=== PATIENT | female | born 1990 ===

== ENCOUNTER 2017-12-30 16:53 | Emergency (ER) | payer OTHER ==
[2017-12-30 17:09] VITALS: O2SAT 100
--- NOTE | 2017-12-30 19:37 | ED PDOC ---
HPI: Female Pain Time Seen by Provider: 12/30/17 18:34 Chief Complaint (Nursing): Female Genitourinary Chief Complaint (Provider): Vaginal bleeding History Per: Patient History/Exam Limitations: no limitations Onset/Duration Of Symptoms: Days (x5) Current Symptoms Are (Timing): Still Present Associated Symptoms: Nausea (mild), Urinary Symptoms (vaginal bleeding ). denies: Vomiting Additional Complaint(s): Nati Young is a 27 year old female, with no significant past medical history, who presents to the emergency department complaining of vaginal bleeding onset for the last x5 days. Patient states it is more like spotting but it slightly increased today which prompted visit. She is A1 and x5 weeks . She has an appointment for her care in x2 weeks and has started on vitamins. She reports a mild nausea with but no vomiting, clots, or pain. No further medical complaints. PMD: Dr. Jasmine : 2 Miscarriage: 1 Past Medical History Reviewed: Historical Data, Nursing Documentation, Vital Signs Vital Signs: Last Vital Signs Temp 98.3 F 12/30/17 17:06 Pulse 90 12/30/17 17:06 Resp 16 12/30/17 17:06 BP 114/67 12/30/17 17:06 Pulse Ox 100 12/30/17 17:06 - Medical History PMH: No Chronic Diseases - Surgical History Surgical History: No Surg Hx - Family History Family History: States: No Known Family Hx - Social History Current smoker - smoking cessation education provided: No Alcohol: None Drugs: Denies - Home Medications Home Medications: Ambulatory Orders Medication Instructions Recorded Multivit/Folic Acid/I 1 tab PO DAILY #30 tab 11/10/16 [ Plus] Nitrofurantoin Macrocrystals 1 cap PO BID #14 cap 12/30/17 [Macrobid] - Allergies Allergies/Adverse Reactions: Allergies Allergy/AdvReac Type Severity Reaction Status Date / Time No Known Allergies Allergy Verified 12/30/17 17:06 Review of Systems ROS Statement: Except As Marked, All Systems Reviewed And Found Negative Genitourinary Female: Positive for: Vaginal Bleeding (spotting. No clots). Negative for: Pelvic Pain Physical Exam - Reviewed Nursing Documentation Reviewed: Yes Vital Signs Reviewed: Yes - Physical Exam Appears: Positive for: Non-toxic, No Acute Distress Head Exam: Positive for: ATRAUMATIC, NORMOCEPHALIC Skin: Positive for: Normal Color, Warm, Dry Eye Exam: Positive for: Normal appearance Neck: Positive for: Painless ROM Gastrointestinal/Abdominal: Positive for: Normal Exam, Soft. Negative for: Tenderness, Mass, Guarding, Rebound Extremity: Positive for: Normal ROM. Negative for: Deformity, Swelling Neurologic/Psych: Positive for: Alert, Oriented - Laboratory Results Result Diagrams: 12/30/17 21:02 - ECG O2 Sat by Pulse Oximetry: 100 (RA) Pulse Ox Interpretation: Normal Medical Decision Making Medical Decision Making: Initial Impression: vaginal bleeding in early . Differential diagnosis includes but not limited to ectopic , threatened miscarriage, complete miscarriage, and UTI Initial Plan: --Type and screen --Beta-HCG,Quantitative --Urine --Urine dipstick --CBC w/ differential --PTT --PT --Reevaluation Labs demonstrate betahcg [id number] Type Rh- Ua c/w UTI EXAM: US , Transvaginal CLINICAL HISTORY: 27 years old, female; Signs and symptoms; Lmp or gestational age (in weeks): ; Antepartum complications; Other: Spotting; ; Additional info: Vag bleed preg R/O ectopic TECHNIQUE: Real-time transvaginal obstetrical ultrasound of the maternal pelvis and a first trimester with image documentation. Transvaginal imaging was used for better evaluation of the fetus and adnexa. COMPARISON: No relevant prior studies available. FINDINGS: Gestation: There is an anechoic structure in the endometrial cavity measuring 1.0 x 0.7 x 1.1 cm probably an early gestational sac. No yolk sac or pole is identified. Placenta/amniotic fluid: Cannot be adequately evaluated due to the early gestational age. Uterus/cervix: Unremarkable measuring 6.6 x 3.5 x 4.7 cm. No myometrial mass. The cervix is closed measuring 3.3 cm. Ovaries: The right ovary measures 4.5 x 2.1 x 3.8 cm and the left ovary measures 2.3 x 2.1 x 2.3 cm. There is a corpus luteal cyst in the right ovary measuring 2.3 x 2.2 x 2.5 cm. No mass. Free fluid: No free fluid. IMPRESSION: Possible early gestational sac. No pole and yolk sac. Ectopic is not completely excluded. Recommend follow up serial beta hCG levels and ultrasound as clinically warranted. Thank you for allowing us to participate in the care of your patient. Dictated and Authenticated by: Concepcion Bradley MD 12/30/2017 11:54 PM Eastern Time ([place] & [place]) KRISHNA ROMEO station mechanic helper. Pt to return to ER in 48 hours for repeat beta. Pain and bleeding precautions. KRISHNA pt and findings and plan of care translated with video felt hanger [place] Nuri H [id number] Rhogam and macrobid in ER. Scribe Attestation: Documented by Toño Cerda, acting as a scribe for Ludy Gunter MD Provider Scribe Attestation: All medical record entries made by the Scribe were at my direction and personally dictated by me. I have reviewed the chart and agree that the record accurately reflects my personal performance of the history, physical exam, medical decision making, and the department course for this patient. I have also personally directed, reviewed, and agree with the discharge instructions and disposition. Disposition - Clinical Impression Clinical Impression: UTI (urinary tract infection), Threatened miscarriage - Disposition Disposition: Routine/Home Disposition Time: 00:32 Condition: STABLE Additional Instructions: RETURN TO ER IN 2 DAYS FOR REPEAT BLOODWORK RETURN TO ER IMMEDIATELY FOR SEVERE PAIN, BLEEDING MORE THAN A PAD AN HOUR, FAINTING OR NEAR FAINTING OR ANY OTHER WORRISOME SYMPTOMS Prescriptions: Nitrofurantoin Macrocrystals [Macrobid] 1 cap PO BID #14 cap Instructions: Urinary Tract Infection, Adult (DC), Threatened Miscarriage (DC) Forms: [facility] ED School/Work Excuse
[2017-12-30 21:06] LABS: BASO # 0.1 K/uL (0.0-0.2); BASO % 0.6 % (0.0-2.0); EOS % 0.5 % (0.0-4.0); HEMOGLOBIN 11.9 g/dL (12.0-16.0); LYMPH # 2.9 K/uL (1.0-4.3); LYMPH % 31.8 % (20.0-40.0); MEAN CELL VOLUME 85.8 fl (81.0-99.0); MEAN CORPUSCULAR HEMOGLOBIN 28.9 pg (27.0-31.0); MEAN CORPUSCULAR HGB CONC 33.7 g/dL (33.0-37.0); MEAN PLATELET VOLUME 9.1 fl (7.2-11.7); MONO # 0.6 K/uL (0.0-0.8); MONO % 6.9 % (0.0-10.0); NEUT # 5.5 K/uL (1.8-7.0); NEUT % 60.2 % (50.0-75.0); RBC 4.11 Mil/uL (3.80-5.20); RED CELL DISTRIBUTION WIDTH 13.6 % (11.5-14.5); WHITE BLOOD COUNT 9.1 K/uL (4.8-10.8)
[2017-12-30 21:20] LABS: INR 1.2 (0.9-1.2); PROTHROMBIN TIME 12.8 Seconds (9.8-13.1)
[2017-12-30 22:25] LABS: SQUAMOUS EPITHIAL 1 /hpf (0-5); URINE BACTERIA MOD (<OCC); URINE BILIRUBIN NEGATIVE (NEGATIVE); URINE BLOOD LARGE (NEGATIVE); URINE CLARITY CLOUDY (Clear); URINE COLOR YELLOW (YELLOW); URINE GLUCOSE (UA) NEG (Normal); URINE LEUKOCYTE ESTERASE SMALL Leu/uL (Negative); URINE PROTEIN NEGATIVE (NEGATIVE); URINE UROBILINOGEN 0.2-1.0 mg/dL (0.2-1.0)
--- NOTE | 2017-12-30 23:55 | US ---
EXAM: US , Transvaginal CLINICAL HISTORY: 27 years old, female; Signs and symptoms; Lmp or gestational age (in weeks): 11/16/17; Antepartum complications; Other: Spotting; ; Additional info: Vag bleed preg R/O ectopic TECHNIQUE: Real-time transvaginal obstetrical ultrasound of the maternal pelvis and a first trimester with image documentation. Transvaginal imaging was used for better evaluation of the fetus and adnexa. COMPARISON: No relevant prior studies available. FINDINGS: Gestation: There is an anechoic structure in the endometrial cavity measuring 1.0 x 0.7 x 1.1 cm probably an early gestational sac. No yolk sac or pole is identified. Placenta/amniotic fluid: Cannot be adequately evaluated due to the early gestational age. Uterus/cervix: Unremarkable measuring 6.6 x 3.5 x 4.7 cm. No myometrial mass. The cervix is closed measuring 3.3 cm. Ovaries: The right ovary measures 4.5 x 2.1 x 3.8 cm and the left ovary measures 2.3 x 2.1 x 2.3 cm. There is a corpus luteal cyst in the right ovary measuring 2.3 x 2.2 x 2.5 cm. No mass. Free fluid: No free fluid. IMPRESSION: Possible early gestational sac. No pole and yolk sac. Ectopic is not completely excluded. Recommend follow up serial beta hCG levels and ultrasound as clinically warranted.
[2017-12-31 02:34] VITALS: BP 108/69; PULSE 93; RESP 15; TEMP 98.1
== END 2017-12-31 02:26 | disposition home or self-care (01) ==
LOC: H.ER 16:53
DX: O20.0 Threatened abortion (principal); O23.40 Unspecified infection of urinary tract in pregnancy, unspecified trimester
CPT/HCPCS: 76817; 81003; 81025; 84702; 85025; 85610; 85730; 86850; 86900; 87086; 87181; 99284; J2792

== ENCOUNTER 2018-01-02 12:08 | Emergency (ER) | payer OTHER ==
[2018-01-02 12:11] VITALS: BMI 28.3
[2018-01-02 12:12] VITALS: BP 102/67; RESP 17; TEMP 98.4; O2SAT 99
[2018-01-02 12:26] VITALS: PULSE 94
--- NOTE | 2018-01-02 12:31 | ED PDOC ---
HPI: Female Pain Time Seen by Provider: 01/02/18 12:31 Chief Complaint (Nursing): Female Genitourinary Chief Complaint (Provider): repeat labs History Per: Patient Additional Complaint(s): 27-year-old female currently 6 weeks presents to emergency department for repeat beta Quant. Patient was seen on December 30 for vaginal bleeding. She was instructed to return today for repeat blood work. Patient is diagnosed with UTI at that time but she has not filled prescription for Macrobid as of yet. She denies fever or chills, no nausea or vomiting. Patient has no abdominal pain or vaginal bleeding today upon arrival. Past Medical History Reviewed: Historical Data, Nursing Documentation, Vital Signs Vital Signs: Last Vital Signs Temp 98.4 F 01/02/18 12:11 Pulse 94 H 01/02/18 12:23 Resp 17 01/02/18 12:11 BP 102/67 01/02/18 12:11 Pulse Ox 99 01/02/18 12:11 - Medical History PMH: No Chronic Diseases Other PMH: - Surgical History Surgical History: No Surg Hx - Family History Family History: States: No Known Family Hx - Living Arrangements Living Arrangements: With Family - Social History Current smoker - smoking cessation education provided: No Alcohol: None Drugs: Denies - Home Medications Home Medications: Ambulatory Orders Medication Instructions Recorded Multivit/Folic Acid/I 1 tab PO DAILY #30 tab 11/10/16 [ Plus] Nitrofurantoin Macrocrystals 1 cap PO BID #14 cap 12/30/17 [Macrobid] - Allergies Allergies/Adverse Reactions: Allergies Allergy/AdvReac Type Severity Reaction Status Date / Time No Known Allergies Allergy Verified 12/30/17 17:06 Review of Systems ROS Statement: Except As Marked, All Systems Reviewed And Found Negative Constitutional: Negative for: Fever, Chills Gastrointestinal: Negative for: Nausea, Vomiting, Abdominal Pain, Diarrhea Genitourinary Female: Negative for: Vaginal Discharge, Vaginal Bleeding Physical Exam - Reviewed Nursing Documentation Reviewed: Yes Vital Signs Reviewed: Yes - Physical Exam Appears: Positive for: Well, Non-toxic, No Acute Distress Skin: Negative for: Rash Eye Exam: Positive for: Normal appearance Cardiovascular/Chest: Positive for: Regular Rate, Rhythm Respiratory: Positive for: Normal Breath Sounds Gastrointestinal/Abdominal: Positive for: Soft. Negative for: Tenderness, Distended, Guarding, Rebound Extremity: Positive for: Normal ROM Neurologic/Psych: Positive for: Alert, Oriented - ECG O2 Sat by Pulse Oximetry: 99 Pulse Ox Interpretation: Normal Medical Decision Making Medical Decision Makin27 year old here for repeat labs Beta quant from 12/30/17 - [id number] Beta quant from today - [id number] Patient aware of diagnostic testing results. All questions answered. Patient was instructed to fill prescription for Macrobid and take meds as directed. She has appointment next week with her OB. Disposition - Clinical Impression Clinical Impression: - Patient ED Disposition Is Patient to be Admitted: No Counseled Patient/Family Regarding: Need For Followup - Disposition [facility] Disposition: Routine/Home Disposition Time: 14:16 Condition: STABLE Additional Instructions: Follow-up as scheduled next week with your OB. Fill prescription medication and take as directed. Instructions: - The Second Month Forms: [employer] (Monegasque)
== END 2018-01-02 14:30 | disposition home or self-care (01) ==
LOC: H.ER 12:08
DX: O02.81 Inappropriate change in quantitative human chorionic gonadotropin (hCG) in early pregnancy (principal); Z3A.01 Less than 8 weeks gestation of pregnancy